=== PATIENT | male | born 1990 | race Two or more races ===

== ENCOUNTER 2019-04-26 12:24 | Emergency (ER) | payer SELFPAY ==
[2019-04-26 12:30] VITALS: BP 149/85
[2019-04-26] MEDS ORDERED: TETRACAINE HCL 0.5% OPH SOLN 4 ML OS ONE (13:56)
--- NOTE | 2019-04-26 13:57 | ER Document Report ---
HPI - HPI Patient complains to provider of: Left eye injury Time Seen by Provider: 04/26/19 13:47 Onset: Yesterday Onset/Duration: Sudden Quality of pain: Achy Pain Level: 3 Context: Patient states that he was at work yesterday and was sawing and is concerned that a piece of wood flew into his eye. Patient does not wear contact lenses or glasses. Patient states that he feels as though sawdust may still be in his eye. Patient states that he had some blurred vision initially although this did seem to improve. Associated Symptoms: Other - Left eye tenderness Exacerbated by: Denies Relieved by: Denies Similar symptoms previously: No Recently seen / treated by doctor: No - ROS ROS below otherwise negative: Yes Systems Reviewed and Negative: Yes All other systems reviewed and negative - EENT EENT: REPORTS: Eye problems - GASTROINTESTINAL Gastrointestinal: DENIES: Nausea, Patient vomiting - DERM Skin Color: Normal Skin Problems: None Past Medical History - General Information source: Patient - Social History Smoking Status: Current Every Day Smoker Chew tobacco use (# tins/day): No Frequency of alcohol use: Social Drug Abuse: None Occupation: Construction Lives with: Family Family History: Reviewed & Not Pertinent Patient has suicidal ideation: No Patient has homicidal ideation: No - Medical History Medical History: Negative Surgical Hx: Negative Vertical Provider Document - CONSTITUTIONAL Agree With Documented VS: Yes Exam Limitations: No Limitations General Appearance: WD/WN, No Apparent Distress - INFECTION CONTROL TRAVEL OUTSIDE OF THE [place] IN LAST 30 DAYS: No - HEENT HEENT: Normocephalic, PERRLA Notes: Sclera injected to the left eye Patient with an abrasion to the sclera of the left eye at the 9 o'clock position where it abuts the iris. No foreign body appreciated. Lids everted during examination. No retained foreign body, no corneal ulcer foreign body or dendrite. Extraocular movements intact. Pain resolved after application of tetracaine. - NECK Neck: Normal Inspection - RESPIRATORY Respiratory: No Respiratory Distress - MUSCULOSKELETAL/EXTREMETIES Musculoskeletal/Extremeties: MAEW - NEURO Level of Consciousness: Awake, Alert, Appropriate Motor/Sensory: No Motor Deficit - DERM Integumentary: Warm, Dry, No Rash Course - Re-evaluation Re-evalutation: 04/26/19 14:52 Patient encouraged to follow-up with flower pot press operator for any persistent problems. Will cover with antibiotics for scleral abrasion at this time. No retained foreign body. Patient's visual acuity reviewed. - Vital Signs Vital signs: Temp Pulse Resp BP Pulse Ox 98.4 F 68 17 149/85 H 98 04/26/19 13:51 04/26/19 12:29 04/26/19 13:51 04/26/19 12:29 04/26/19 13:51 Discharge - Discharge Clinical Impression: Abrasion of sclera of left eye Qualifiers: Encounter type: initial encounter Qualified Code(s): S05.8X2A - Other injuries of left eye and orbit, initial encounter Condition: Stable Disposition: HOME, SELF-CARE Instructions: Eye Injury ([facility]) Additional Instructions: Return immediately for any new or worsening symptoms Followup with your primary care provider, call tomorrow to make a followup appointment Follow-up with flower pot press operator for any persistent pain or problems Prescriptions: Erythromycin Base [E-Mycin 0.5% Oph Ointment 3.5 gm] 1 applic LFT_EYE QID #1 tube Forms: Return to Work Referrals: [facility] [Provider Group] - Follow up as needed [facility] [Provider Group] - Follow up as needed
== END 2019-04-26 15:14 | disposition home or self-care (01) ==
LOC: ER 12:24
DX: S05.8X2A Other injuries of left eye and orbit, initial encounter (principal); F17.200 Nicotine dependence, unspecified, uncomplicated; W22.8XXA Striking against or struck by other objects, initial encounter; Y99.0 Civilian activity done for income or pay
CPT/HCPCS: 99283; J3490